=== PATIENT | female | born 1975 ===

== ENCOUNTER 2018-01-28 19:32 | Emergency (ER) | payer BC ==
--- NOTE | 2018-01-28 20:11 | C.PDOC ---
History Of Present Illness 42 year old female presents to the ED c/o abdominal pain for the past week. Patient denies fever, chills, nausea, vomit, diarrhea, dysuria, hematuria, back pain, rash. Time Seen by Provider: 01/28/18 20:11 Chief Complaint (Nursing): Abdominal Pain History Per: Patient History/Exam Limitations: no limitations Onset/Duration Of Symptoms: Days Current Symptoms Are (Timing): Still Present Pain Scale Rating Of: 4 Location Of Pain/Discomfort: RLQ Radiation Of Pain To:: None Quality Of Discomfort: "Pain" Associated Symptoms: denies: Nausea, Vomiting, Diarrhea, Urinary Symptoms Alleviating Factors: None Recent travel outside of the [place]: No Additional History Per: Patient Abnormal Vaginal Bleeding: No Past Medical History Reviewed: Historical Data, Nursing Documentation, Vital Signs Vital Signs: Last Vital Signs Temp 98 F 01/28/18 19:50 Pulse 87 01/28/18 19:50 Resp 14 01/28/18 19:50 BP 124/80 01/28/18 19:50 Pulse Ox 99 01/28/18 19:50 - Medical History PMH: Hypothyroidism Surgical History: No Surg Hx Family History: States: No Known Family Hx - Social History Hx Alcohol Use: No Hx Substance Use: No - Immunization History Hx Tetanus Toxoid Vaccination: Yes Hx Influenza Vaccination: Yes Hx Pneumococcal Vaccination: No Review Of Systems Constitutional: Negative for: Fever, Chills Cardiovascular: Negative for: Chest Pain Respiratory: Negative for: Shortness of Breath Gastrointestinal: Positive for: Abdominal Pain. Negative for: Nausea, Vomiting, Diarrhea Genitourinary: Negative for: Dysuria, Hematuria Musculoskeletal: Negative for: Back Pain Skin: Negative for: Rash Physical Exam - Physical Exam Appears: Non-toxic, No Acute Distress Skin: Warm, Dry Head: Normacephalic Eye(s): bilateral: Normal Inspection Neck: Supple Chest: Symmetrical Cardiovascular: Rhythm Regular Respiratory: No Rales, No Rhonchi, No Wheezing Gastrointestinal/Abdominal: Soft, Tenderness (RLQ), No Guarding, No Rebound Back: Normal Inspection Extremity: Bilateral: Atraumatic, Normal Color And Temperature, Normal ROM Neurological/Psych: Oriented x3, Normal Speech, Normal Cognition Gait: Steady ED Course And Treatment - Laboratory Results Result Diagrams: 01/28/18 20:38 01/28/18 20:38 O2 Sat by Pulse Oximetry: 99 (ON RA) Pulse Ox Interpretation: Normal - CT Scan/US CT abd/pelvis Other Rad Studies (CT/US): Read By Radiologist, Radiology Report Reviewed CT/US Interpretation: IMPRESSION: 1. Appendix is not identified. There is no evidence of acute appendicitis. 2. Enteritis. Infectious and inflammatory etiologies are considered. Consider consultation with GI service and follow up with upper endoscopy and colonoscopy. 3. Bladder wall thickening is noted measuring up to 4 mm, consistent with cystitis. 4. The uterus is retroverted and retroflexed with fluid filled endometrial canal. . Electronically signed on Jan 28, 2018 10:32:05 PM EST by: Curt Poe M.D., KAEL Certified By ABR & CBC[facility]. Fellowship Trained MRI and CT Specialist Reevaluation Time: 22:54 Reassessment Condition: Improved Medical Decision Making Medical Decision Making: Plan: * CT abd/pelvis * Labs * Protonix 40 mg IVP * IV fluids * UA * Upon provider reevaluation patient is feeling better, is medically stable, and requires no further treatment in the ED at this time. Patient will be discharged home with Rx for flagyl . Counseling was provided and all questions were answered regarding diagnosis and need for follow up with the referred clinic. There is agreement to discharge plan. Return if symptoms persist or worsen. Disposition Counseled Patient/Family Regarding: Studies Performed, Diagnosis, Need For Followup, Rx Given - Disposition Referrals: [facility] [Outside] [facility] [Outside] Disposition: HOME/ ROUTINE Disposition Time: 20:11 Condition: FAIR Additional Instructions: Please return if symptoms recur Prescriptions: Metronidazole [Flagyl] 500 mg PO TID #21 tablet Instructions: Acute Abdomen (Belly Pain), Adult (DC) Forms: [employer] (Greenlandic) Print Language: CHADIAN - Clinical Impression Clinical Impression: Abdominal pain, Enteritis - Scribe Statement The provider has reviewed the documentation as recorded by the Scribe Raijv Peace All medical record entries made by the Kalinibe were at my direction and personally dictated by me. I have reviewed the chart and agree that the record accurately reflects my personal performance of the history, physical exam, medical decision making, and the department course for this patient. I have also personally directed, reviewed, and agree with the discharge instructions and disposition.
[2018-01-28] MEDS ORDERED: Sodium Chloride 0.9% 1,000 ML IV ONE (20:14)
[2018-01-28 20:36] LABS: HCG,QUALITATIVE URINE NEGATIVE (NEGATIVE); SQUAMOUS EPITHIAL 2 /hpf (0-5); URINE BACTERIA RARE (<OCC); URINE BILIRUBIN NEGATIVE (NEGATIVE); URINE BLOOD NEGATIVE (NEGATIVE); URINE CLARITY Clear (Clear); URINE COLOR Straw (YELLOW); URINE GLUCOSE (UA) NORMAL (Normal); URINE LEUKOCYTE ESTERASE NEG Leu/uL (Negative); URINE PROTEIN NEGATIVE (NEGATIVE); URINE UROBILINOGEN NORMAL mg/dL (0.2-1.0)
[2018-01-28 20:41] LABS: BASO # 0.1 K/uL (0.0-0.2); BASO % 0.8 % (0.0-2.0); EOS # 0.6 K/uL (0.0-0.7); EOS % 6.7 % (0.0-4.0); LYMPH # 2.9 K/uL (1.0-4.3); LYMPH % 31.3 % (20.0-40.0); MEAN CELL VOLUME 78.3 fL (81.0-99.0); MEAN CORPUSCULAR HEMOGLOBIN 25.6 pg (27.0-31.0); MEAN CORPUSCULAR HGB CONC 32.7 g/dL (33.0-37.0); MONO # 0.5 K/uL (0.0-0.8); MONO % 5.4 % (0.0-10.0); NEUT # 5.2 K/uL (1.8-7.0); NEUT % 55.8 % (50.0-75.0); NRBC % 0.1 % (0.0-2.0); RBC 4.32 Mil/uL (3.80-5.20); RED CELL DISTRIBUTION WIDTH 16.8 % (11.5-14.5); WHITE BLOOD COUNT 9.2 K/uL (4.8-10.8)
[2018-01-28] MEDS ORDERED: Sodium Chloride 0.9% 1,000 ML ONE (20:48)
[2018-01-28 20:50] LABS: INR 1.1; PROTHROMBIN TIME 12.3 SECONDS (9.7-12.2)
[2018-01-28 20:57] LABS: ALB/GLOB RATIO 1.3 (1.0-2.1); ALBUMIN 4.1 g/dL (3.5-5.0); ALT/SGPT 21 U/L (9-52); AST/SGOT 25 U/L (14-36); BLOOD UREA NITROGEN 11 mg/dL (7-17); CALCIUM 8.9 mg/dl (8.6-10.4); GFR NON-AFRICAN AMERICAN > 60; LIPASE 58 U/L (23-300)
[2018-01-28] MEDS ORDERED: Iohexol 300 100 ML IJ ONE (21:19)
[2018-01-28 22:59] VITALS: BP 111/68; PULSE 70; RESP 18; TEMP 99.2; O2SAT 98
--- NOTE | 2018-01-29 09:46 | CT ---
Date of service: 01/28/2018 PROCEDURE: CT Abdomen and Pelvis . HISTORY: Abdominal pain COMPARISON: None. TECHNIQUE: Contiguous helical/transaxial images of the abdomen and pelvis. Oral contrast was administered. No IV contrast given. Coronal and Sagittal reformats generated. Radiation dose: Total exam DLP = 523.72 mGy-cm. This CT exam was performed using one or more of the following dose reduction techniques: Automated exposure control, adjustment of the mA and/or kV according to patient size, and/or use of iterative reconstruction technique. FINDINGS: LOWER THORAX: Heart size within range normal. No significant pericardial effusion. Tiny hiatal hernia. Mild passive/dependent type atelectasis both lung bases. LIVER: Liver exhibits relatively normal size. Mild diffuse fatty hepatic infiltration. No obvious hepatic mass collection or calcification. Portal and splenic veins are opacified. GALLBLADDER AND BILE DUCTS: Gallbladder physiologically distended. No evidence of intraluminal gallbladder calculi. PANCREAS: The pancreas appears unremarkable without masses collections or calcifications.. SPLEEN: Unremarkable. No splenomegaly. ADRENALS: No adrenal lesions.. KIDNEYS AND URETERS: The kidneys demonstrate relatively symmetric nephrograms. No evidence of nephrolithiasis. Slight columnization of the right ureter. BLADDER: Urinary bladder appears incompletely distended which in part accounts for thick-walled appearance. Possibility of a cystitis not excluded. Correlation with urinalysis.. REPRODUCTIVE: Smaller left-sided adnexal cyst measuring 13 mm.. The uterus exhibits a somewhat thickened endometrial canal. Consider follow-up pelvic ultrasound. APPENDIX: Appendix is not seen with complete certainty however no evidence of inflammatory changes right lower quadrant of the abdomen.. BOWEL: Evaluation of the bowel is limited due to the lack of oral contrast. Stomach is incompletely distended. Visualized loops of small bowel exhibit normal contour and caliber. No evidence of acute mechanical small bowel obstruction.. There is a moderate amount of stool seen throughout the right and transverse colon suggesting mild fecal retention. Remainder of the colon is relatively air-filled. No mural wall thickening. PERITONEUM: Unremarkable. No fluid collection. No free air. Tiny fat containing umbilical hernia. LYMPH NODES: Unremarkable. No enlarged lymph nodes. VASCULATURE: Unremarkable. No aortic aneurysm. No aortic atherosclerotic calcification or mural plaque present. BONES: The vertebral bodies exhibit normal stature without evidence of acute or chronic compression fractures nor significant degenerative spondylosis. OTHER FINDINGS: None. IMPRESSION: There is a small left adnexal cyst. Prominent endometrial canal. Recommend follow-up pelvic ultrasound. Findings suggest mild fecal retention as described. Mild fatty hepatic infiltration. This report was placed PA review folder follow
== END 2018-01-28 23:02 | disposition home or self-care (01) ==
LOC: C.ER 19:32
DX: K52.9 Noninfective gastroenteritis and colitis, unspecified (principal); E03.9 Hypothyroidism, unspecified
CPT/HCPCS: 74177; 80053; 81001; 83690; 84703; 85025; 85610; 85730; 96361; 96374; 99284; C9113; J7030; Q9967